=== PATIENT | female | born 2000 | race Caucasian/White ===

== ENCOUNTER 2020-06-17 19:46 | Inpatient (IN) | payer MEDICAID, OTHER ==
[~2020-06-17] VITALS: Ht 152.8 cm; Wt 79.8 kg
[2020-06-17] MEDS ORDERED: ONDANSETRON HCL 4MG/2ML INJ IV STA (20:52)
[2020-06-17] MEDS ORDERED: KETOROLAC 30MG/ML VIAL IV STA (20:52)
[2020-06-17] MEDS ORDERED: SODIUM CHLORIDE 0.9% 1,000 ML IV ONE (20:52)
[2020-06-17 21:03] LABS: CLARITY URINE CLEAR (CLEAR); COLOR URINE DARK YELLOW (YELLOW); KETONES URINE TRACE (NEGATIVE); LEUKOCYTE ESTERASE URINE 1+ (NEGATIVE); NITRITE URINE NEGATIVE (NEGATIVE); OCCULT BLOOD URINE TRACE (NEGATIVE); PROTEIN URINE 1+ (NEGATIVE); SPECIFIC GRAVITY URINE 1.031 (1.005-1.030)
[2020-06-17 21:31] LABS: BASOPHILS % 0.3 % (0.0-2.0); EOSINOPHILS % 0.4 % (0.0-5.0); HEMATOCRIT. 37.6 % (36.0-48.0); LYMPHOCYTES % 9.6 % (20.0-50.0); MEAN CORPUSCULAR HEMOGLOBIN 28.5 pg (28.0-32.0); MEAN CORPUSCULAR VOLUME 82.6 fL (81.0-99.0); MONOCYTES % 7.1 % (2.0-8.0); NEUTROPHILS % 82.6 % (40.0-76.0); PLATELET 310 x1000/uL (130-400); RED BLOOD CELL COUNT 4.55 mill/uL (4.2-5.4); RED CELL DISTRIBUTION WIDTH 13.4 % (11.6-14.6)
[2020-06-17 21:33] LABS: CHLORIDE 105 mEq/L (98-107)
[2020-06-17 21:38] LABS: PROTHROMBIN TIME 10.6 sec (9.6-11.0)
[2020-06-17] MEDS ORDERED: PIPERACILLIN/TAZ 3.375G PREMIX 50 ML IV ONE (23:00)
[2020-06-18 00:30] VITALS: BP 129/84
[2020-06-18] MEDS ORDERED: HYDROMORPHONE HCL/PF 2MG/ML CPJ IV PRN (01:30)
[2020-06-18] MEDS ORDERED: ACETAMINOPHEN 325MG TABLET PO PRN (01:30)
[2020-06-18] MEDS ORDERED: DIATR MEGLU/DIATRIZOATE SOLN 30ML PO SCH ×2 (01:30→06:00)
[2020-06-18] MEDS ORDERED: ZOLPIDEM TARTRATE 5MG TABLET PO PRN (01:30)
[2020-06-18] MEDS ORDERED: ONDANSETRON HCL 4MG/2ML INJ IV PRN (01:30)
[2020-06-18 04:00] VITALS: BP 129/84
[2020-06-18] MEDS: DEXT 5%/0.45% NACL KCL 20MEQ/L 1,000 ML IV SCH ×2 (04:59→14:11)
[2020-06-18] MEDS: PIPERACILLIN/TAZOBACTAM 3.375 G in DEXT 5% WATER 100 ML IV SCH ×2 (05:09→14:11)
[2020-06-18] MEDS ORDERED: DIATR MEGLU/DIATRIZOATE SOLN 30ML ONE (05:33)
[2020-06-18 07:07] LABS: BASOPHILS % 0.4 % (0.0-2.0); EOSINOPHILS % 1.7 % (0.0-5.0); HEMATOCRIT. 32.2 % (36.0-48.0); LYMPHOCYTES % 27.6 % (20.0-50.0); MEAN CORPUSCULAR HEMOGLOBIN 28.5 pg (28.0-32.0); MEAN CORPUSCULAR VOLUME 83.3 fL (81.0-99.0); MEAN PLATELET VOLUME 8.1 fl (7.4-10.4); MONOCYTES % 9.2 % (2.0-8.0); NEUTROPHILS % 61.1 % (40.0-76.0); PLATELET 267 x1000/uL (130-400); RED BLOOD CELL COUNT 3.87 mill/uL (4.2-5.4); RED CELL DISTRIBUTION WIDTH 13.2 % (11.6-14.6)
[2020-06-18 07:19] LABS: CHLORIDE 108 mEq/L (98-107)
[2020-06-18 07:35] LABS: HEPATITIS B SURFACE ANTIGEN NEGATIVE
[2020-06-18 08:00] VITALS: BP 117/70
[2020-06-18 08:04] LABS: HEPATITIS A AB IGM NEGATIVE (NEGATIVE)
[2020-06-18] MEDS ORDERED: ENOXAPARIN 40MG/0.4ML SYR SUBCUT SCH (09:00)
[2020-06-18 11:21] LABS: UCG SCREEN NEGATIVE
[2020-06-18 11:26] LABS: *AMPHETAMINES SCREEN URINE NEGATIVE (NEGATIVE); *BARBITURATES SCREEN URINE NEGATIVE (NEGATIVE); *BENZODIAZEPINES SCREEN URINE NEGATIVE (NEGATIVE); *COCAINE SCREEN URINE NEGATIVE (NEGATIVE); CANNABINOID URINE SCREEN NEGATIVE (NEGATIVE); PHENCYCLIDINE URINE SCREEN NEGATIVE (NEGATIVE)
[2020-06-18 11:28] LABS: METHADONE URINE SCREEN NEGATIVE (NEGATIVE); OPIATES URINE SCREEN NEGATIVE (NEGATIVE)
[2020-06-18 12:00] VITALS: BP 122/68
[2020-06-18 12:42] LABS: HCG SCREEN NEGATIVE
[2020-06-18] MEDS ORDERED: AMOX1TAB15 MT (14:33)
[2020-06-18 15:19] VITALS: BP 122/68
[2020-06-18] MEDS ORDERED: PIPERACILLIN/TAZOBACTAM 3.375 G in DEXT 5% WATER 100 ML IV SCH (20:00)
== END 2020-06-18 15:42 | disposition home or self-care (01) ==
LOC: ER 19:46 → 6EST 23:45 → EDBEDREQ 23:48 → EDBEDREQTM 23:48 → ENRESERV 23:52
PROVIDERS: ADMIT Ophthalmology; ATTEND Ophthalmology
DX: K80.20 Calculus of gallbladder without cholecystitis without obstruction (principal); M54.5 Low back pain; R11.14 Bilious vomiting; D64.9 Anemia, unspecified; R74.0 Nonspecific elevation of levels of transaminase and lactic acid dehydrogenase [LDH]; R73.9 Hyperglycemia, unspecified; E66.9 Obesity, unspecified; E86.0 Dehydration; N39.0 Urinary tract infection, site not specified; Z68.34 Body mass index [BMI] 34.0-34.9, adult
CPT/HCPCS: 36415; 74178; 76705; 80053; 80061; 80305; 81003; 81025; 83605; 84443; 84703; 85025; 86705; 86709; 86803; 86850; 86900; 87340; 93005; 99285; J1650; J1885; J2405; J2543; J7030; J7060; Q9963

== ENCOUNTER 2020-06-27 01:20 | Inpatient (IN) | payer MEDICAID ==
[~2020-06-27] VITALS: Ht 157.5 cm; Wt 79.8 kg
[~2020-06-27 01:20] MED LIST: AMOX1TAB15 MT
[2020-06-27] MEDS ORDERED: ONDANSETRON 4MG ODT PO STA (02:30)
[2020-06-27] MEDS ORDERED: KETOROLAC 60MG/2ML VIAL IM STA (02:30)
[2020-06-27 02:59] LABS: BASOPHILS % 0.3 % (0.0-2.0); EOSINOPHILS % 0.1 % (0.0-5.0); HEMATOCRIT. 38.4 % (36.0-48.0); LYMPHOCYTES % 8.7 % (20.0-50.0); MEAN CORPUSCULAR HEMOGLOBIN 28.4 pg (28.0-32.0); MEAN PLATELET VOLUME 8.2 fl (7.4-10.4); MONOCYTES % 5.3 % (2.0-8.0); NEUTROPHILS % 85.6 % (40.0-76.0); PLATELET 340 x1000/uL (130-400); RED BLOOD CELL COUNT 4.57 mill/uL (4.2-5.4); RED CELL DISTRIBUTION WIDTH 13.5 % (11.6-14.6)
[2020-06-27 03:04] LABS: CHLORIDE 107 mEq/L (98-107)
[2020-06-27 03:31] LABS: CLARITY URINE CLOUDY (CLEAR); COLOR URINE DARK YELLOW (YELLOW); KETONES URINE 2+ (NEGATIVE); LEUKOCYTE ESTERASE URINE 1+ (NEGATIVE); NITRITE URINE NEGATIVE (NEGATIVE); OCCULT BLOOD URINE 3+ (NEGATIVE); PROTEIN URINE 1+ (NEGATIVE)
[2020-06-27 03:48] LABS: *AMPHETAMINES SCREEN URINE NEGATIVE (NEGATIVE); *BARBITURATES SCREEN URINE NEGATIVE (NEGATIVE); *BENZODIAZEPINES SCREEN URINE NEGATIVE (NEGATIVE)
[2020-06-27 03:49] LABS: *COCAINE SCREEN URINE NEGATIVE (NEGATIVE); CANNABINOID URINE SCREEN NEGATIVE (NEGATIVE); METHADONE URINE SCREEN NEGATIVE (NEGATIVE); OPIATES URINE SCREEN NEGATIVE (NEGATIVE); PHENCYCLIDINE URINE SCREEN NEGATIVE (NEGATIVE)
[2020-06-27] MEDS ORDERED: ONDANSETRON HCL 4MG/2ML INJ IV SCH (04:15)
[2020-06-27] MEDS ORDERED: SODIUM CHLORIDE 0.9% 1000ML BAG (SEPSIS BOLUS) IV ONE (04:15)
[2020-06-27] MEDS: MORPHINE SULFATE 4 MG/ML CPJ (NOT FOR IM USE) IV SCH ×2 (05:12→06:04)
[2020-06-27] MEDS ORDERED: PIPERACILLIN/TAZ 3.375G PREMIX 50 ML IV SCH (08:45)
[2020-06-27] MEDS ORDERED: ONDANSETRON HCL 4MG/2ML INJ IV PRN (08:45)
[2020-06-27 09:05] VITALS: BP 142/84
[2020-06-27] MEDS: PIPERACILLIN/TAZOBACTAM 3.375 G in DEXT 5% WATER 100 ML IV SCH ×3 (09:23→21:30)
[2020-06-27] MEDS: FAMOTIDINE 20MG/2ML VIAL IV SCH ×2 (09:23→21:26)
[2020-06-27] MEDS: ENOXAPARIN 40MG/0.4ML SYR SUBCUT SCH (09:25)
[2020-06-27] MEDS: HYDROMORPHONE HCL/PF 2MG/ML CPJ IV PRN ×3 (09:25→21:25)
[2020-06-27] MEDS: DEXT 5%/0.45% NACL KCL 20MEQ/L 1,000 ML IV SCH ×2 (14:34→21:30)
[2020-06-27 16:47] LABS: HEMATOCRIT. 35.9 % (36.0-48.0); HEMOGLOBIN. 12.1 g/dL (12.0-16.0); MEAN CORPUSCULAR HEMOGLOBIN 28.6 pg (28.0-32.0); MEAN CORPUSCULAR VOLUME 85.3 fL (81.0-99.0); MEAN PLATELET VOLUME 8.4 fl (7.4-10.4); PLATELET 287 x1000/uL (130-400); RED BLOOD CELL COUNT 4.21 mill/uL (4.2-5.4); RED CELL DISTRIBUTION WIDTH 13.9 % (11.6-14.6)
[2020-06-27 16:52] LABS: CHLORIDE 110 mEq/L (98-107)
[2020-06-27 17:07] LABS: INR 1.1; PROTHROMBIN TIME 11.3 sec (9.6-11.0)
[2020-06-27 18:09] LABS: HCG SCREEN NEGATIVE
[2020-06-27 20:00] VITALS: BP 121/80
[2020-06-27 20:40] LABS: PLATELET ESTIMATE NORMAL
[2020-06-28] VITALS: BP 122/75
[2020-06-28 04:00] VITALS: BP 119/69
[2020-06-28] MEDS: PIPERACILLIN/TAZOBACTAM 3.375 G in DEXT 5% WATER 100 ML IV SCH ×4 (05:50→21:05)
[2020-06-28] MEDS: DEXT 5%/0.45% NACL KCL 20MEQ/L 1,000 ML IV SCH ×3 (05:51→21:05)
[2020-06-28 06:41] LABS: BASOPHILS % 0.1 % (0.0-2.0); EOSINOPHILS % 0.2 % (0.0-5.0); HEMATOCRIT. 32.7 % (36.0-48.0); HEMOGLOBIN. 11.2 g/dL (12.0-16.0); LYMPHOCYTES % 9.4 % (20.0-50.0); MEAN CORPUSCULAR VOLUME 84.6 fL (81.0-99.0); MEAN PLATELET VOLUME 8.4 fl (7.4-10.4); NEUTROPHILS % 81.3 % (40.0-76.0); PLATELET 222 x1000/uL (130-400); RED BLOOD CELL COUNT 3.87 mill/uL (4.2-5.4); RED CELL DISTRIBUTION WIDTH 13.4 % (11.6-14.6)
[2020-06-28 06:44] LABS: CHLORIDE 108 mEq/L (98-107)
[2020-06-28 06:54] LABS: AMYLASE 1086 IU/L (25-115)
[2020-06-28 08:00] VITALS: BP 126/70
[2020-06-28] MEDS: HYDROMORPHONE HCL/PF 2MG/ML CPJ IV PRN ×4 (08:12→21:55)
[2020-06-28] MEDS: FAMOTIDINE 20MG/2ML VIAL IV SCH ×2 (08:51→21:05)
[2020-06-28] MEDS: ENOXAPARIN 40MG/0.4ML SYR SUBCUT SCH (08:52)
[2020-06-28 12:00] VITALS: BP 114/66
[2020-06-28] MEDS ORDERED: POTASSIUM CHLORIDE INJ 40 MEQ in DEXT 5% WATER 250 ML IV SCH (14:00)
[2020-06-28] MEDS ORDERED: POTASSIUM CHLORIDE 20MEQ TABLET SR PO NR (14:15)
[2020-06-28 16:00] VITALS: BP 116/81
[2020-06-28 20:00] VITALS: BP 117/64
[2020-06-28 21:18] LABS: HEPATITIS B SURFACE ANTIGEN NEGATIVE
[2020-06-28 21:48] LABS: HEPATITIS A AB IGM NEGATIVE (NEGATIVE)
[2020-06-29] VITALS: BP 128/72
[2020-06-29 04:00] VITALS: BP 120/78
[2020-06-29] MEDS: PIPERACILLIN/TAZOBACTAM 3.375 G in DEXT 5% WATER 100 ML IV SCH ×4 (04:01→21:45)
[2020-06-29] MEDS: DEXT 5%/0.45% NACL KCL 20MEQ/L 1,000 ML IV SCH ×3 (04:01→21:45)
[2020-06-29] MEDS: HYDROMORPHONE HCL/PF 2MG/ML CPJ IV PRN ×3 (04:33→21:47)
[2020-06-29 06:42] LABS: BASOPHILS % 0.4 % (0.0-2.0); HEMATOCRIT. 30.6 % (36.0-48.0); HEMOGLOBIN. 10.4 g/dL (12.0-16.0); LYMPHOCYTES % 13.6 % (20.0-50.0); MEAN CORPUSCULAR HEMOGLOBIN 28.5 pg (28.0-32.0); MEAN CORPUSCULAR VOLUME 83.9 fL (81.0-99.0); MEAN PLATELET VOLUME 8.2 fl (7.4-10.4); MONOCYTES % 10.6 % (2.0-8.0); NEUTROPHILS % 74.4 % (40.0-76.0); PLATELET 200 x1000/uL (130-400); RED BLOOD CELL COUNT 3.64 mill/uL (4.2-5.4); RED CELL DISTRIBUTION WIDTH 13.4 % (11.6-14.6)
[2020-06-29 07:30] LABS: CHLORIDE 105 mEq/L (98-107)
[2020-06-29 08:00] VITALS: BP 127/72
[2020-06-29] MEDS: FAMOTIDINE 20MG/2ML VIAL IV SCH ×2 (09:13→21:46)
[2020-06-29] MEDS: ENOXAPARIN 40MG/0.4ML SYR SUBCUT SCH (09:23)
[2020-06-29 12:00] VITALS: BP 120/64
[2020-06-29 16:00] VITALS: BP 122/72
[2020-06-29 20:00] VITALS: BP 117/76
[2020-06-30] VITALS: BP 127/79
[2020-06-30] MEDS: PIPERACILLIN/TAZOBACTAM 3.375 G in DEXT 5% WATER 100 ML IV SCH ×3 (03:16→15:53)
[2020-06-30 04:00] VITALS: BP 117/76
[2020-06-30] MEDS: DEXT 5%/0.45% NACL KCL 20MEQ/L 1,000 ML IV SCH (06:07)
[2020-06-30 07:20] LABS: CHLORIDE 107 mEq/L (98-107)
[2020-06-30 07:37] LABS: BASOPHILS % 0.4 % (0.0-2.0); HEMATOCRIT. 29.7 % (36.0-48.0); HEMOGLOBIN. 10.1 g/dL (12.0-16.0); LYMPHOCYTES % 21.3 % (20.0-50.0); MEAN CORPUSCULAR HEMOGLOBIN 28.4 pg (28.0-32.0); MEAN CORPUSCULAR VOLUME 83.4 fL (81.0-99.0); MEAN PLATELET VOLUME 8.4 fl (7.4-10.4); MONOCYTES % 9.5 % (2.0-8.0); NEUTROPHILS % 65.8 % (40.0-76.0); PLATELET 204 x1000/uL (130-400); RED BLOOD CELL COUNT 3.56 mill/uL (4.2-5.4)
[2020-06-30 08:00] VITALS: BP 125/69
[2020-06-30] MEDS: ENOXAPARIN 40MG/0.4ML SYR SUBCUT SCH (09:00)
[2020-06-30] MEDS: FAMOTIDINE 20MG/2ML VIAL IV SCH (09:01)
[2020-06-30] MEDS ORDERED: BUPIVACAINE HCL 0.5% (5MG/ML) 50ML ONE (09:42)
[2020-06-30] MEDS ORDERED: SKIN ADHESIVE 0.7 GM EA TOP ONE (09:42)
[2020-06-30] MEDS ORDERED: PROPOFOL 200MG/20ML VIAL IV ONE (10:02)
[2020-06-30] MEDS ORDERED: FENTANYL CITRATE/PF 50MCG/ML 2ML VIAL ONE ×2 (10:02→10:28)
[2020-06-30] MEDS ORDERED: MIDAZOLAM HCL 2 MG/2 ML VIAL ONE (10:03)
[2020-06-30] MEDS ORDERED: ROCURONIUM BROMIDE 10MG/ML VIAL 5ML IV ONE (10:14)
[2020-06-30] MEDS ORDERED: LIDOCAINE HCL/PF 1% 10 MG/ML 5ML VIAL ONE (10:54)
[2020-06-30] MEDS ORDERED: KETOROLAC 30MG/ML VIAL ONE (10:54)
[2020-06-30] MEDS ORDERED: NEOSTIGMINE METHYLSULFATE 1MG/ML 10 ML VIAL ONE (11:01)
[2020-06-30] MEDS ORDERED: GLYCOPYRROLATE 0.2 MG/ML 2ML VIAL ONE (11:02)
[2020-06-30] MEDS ORDERED: HYDROMORPHONE HCL/PF 2MG/ML CPJ IV PRN (11:15)
[2020-06-30] MEDS ORDERED: HYDROMORPHONE HCL/PF 2MG/ML CPJ IV NR (11:15)
[2020-06-30] MEDS ORDERED: DEXT 5%/0.45% NACL KCL 20MEQ/L 1,000 ML IV SCH ×2 (11:29→12:00)
[2020-06-30] MEDS ORDERED: MORPHINE SULFATE 4 MG/ML CPJ (NOT FOR IM USE) IV PRN (11:30)
[2020-06-30] MEDS ORDERED: HYDROCODONE/ACETAMINOPHEN 5/325MG TABLET PO PRN ×4 (11:30)
[2020-06-30] MEDS ORDERED: MORPHINE SULFATE 2 MG/ML CPJ (NOT FOR IM USE) IV PRN ×2 (11:30)
[2020-06-30] MEDS ORDERED: ONDANSETRON HCL 4MG/2ML INJ IV PRN ×2 (11:30)
[2020-06-30] MEDS ORDERED: SODIUM CHLORIDE 0.9% INJ 3ML FLUSH IVF SCH ×2 (14:00)
[2020-06-30] MEDS: MORPHINE SULFATE 4 MG/ML CPJ (NOT FOR IM USE) IV PRN ×2 (14:01→17:04)
[2020-06-30 16:00] VITALS: BP 137/83
[2020-06-30 17:58] VITALS: BP 138/91
[2020-06-30 18:47] VITALS: BP 138/91
== END 2020-06-30 19:26 | disposition home or self-care (01) | DRG 263 ==
LOC: ER 02:34 → 6EST 04:56 → ENRESERV 07:54
PROVIDERS: ADMIT Ophthalmology; ATTEND Ophthalmology
PROC: 0FT44ZZ Resection of Gallbladder, Percutaneous Endoscopic Approach (ICD-10-PCS; principal; 2020-06-30)
DX: K80.20 Calculus of gallbladder without cholecystitis without obstruction (principal); K85.10 Biliary acute pancreatitis without necrosis or infection; E87.6 Hypokalemia; K76.0 Fatty (change of) liver, not elsewhere classified; R73.9 Hyperglycemia, unspecified; Z20.828 Contact with and (suspected) exposure to other viral communicable diseases; Z79.2 Long term (current) use of antibiotics
CPT/HCPCS: 36415; 73706; 74181; 76705; 80053; 80076; 80305; 81003; 82150; 82248; 83036; 84703; 85025; 86705; 86709; 86803; 86850; 86900; 87340; 87426; 88304; 93005; 99285; J1170; J1650; J1885; J2250; J2270; J2405; J2543; J2704; J2710; J3010; J3480; J3490; J7060; Q0162

== ENCOUNTER 2020-07-01 06:06 | Emergency (ER) | payer MEDICAID ==
[~2020-07-01] VITALS: Ht 157.5 cm; Wt 80.7 kg
[2020-07-01] MEDS ORDERED: ACETAMINOPHEN 325MG TABLET PO STA (06:49)
[2020-07-01] MEDS ORDERED: MORPHINE SULFATE 4 MG/ML CPJ (NOT FOR IM USE) IV STA (06:49)
[2020-07-01] MEDS ORDERED: PIPERACILLIN/TAZ 3.375G PREMIX 50 ML IV ONE (07:00)
[2020-07-01] MEDS ORDERED: VANCOMYCIN 1 G PREMIX 200 ML IV ONE (07:00)
[2020-07-01] MEDS ORDERED: SODIUM CHLORIDE 0.9% 1000ML BAG (SEPSIS BOLUS) IV ONE (07:00)
[2020-07-01 07:07] LABS: BASOPHILS % 0.2 % (0.0-2.0); EOSINOPHILS % 0.3 % (0.0-5.0); HEMATOCRIT. 32.3 % (36.0-48.0); HEMOGLOBIN. 11.2 g/dL (12.0-16.0); LYMPHOCYTES % 10.9 % (20.0-50.0); MEAN CORPUSCULAR HEMOGLOBIN 28.6 pg (28.0-32.0); MEAN CORPUSCULAR VOLUME 82.8 fL (81.0-99.0); MEAN PLATELET VOLUME 8.1 fl (7.4-10.4); MONOCYTES % 11.6 % (2.0-8.0); PLATELET 288 x1000/uL (130-400)
[2020-07-01 07:13] LABS: CHLORIDE 101 mEq/L (98-107)
[2020-07-01 07:15] LABS: INR 1.1; PROTHROMBIN TIME 11.4 sec (9.6-11.0)
[2020-07-01 08:58] VITALS: BP 128/78
[2020-07-01 09:05] LABS: HCG SCREEN NEGATIVE
== END 2020-07-01 10:58 | disposition home or self-care (01) ==
LOC: ER 06:06
DX: G89.18 Other acute postprocedural pain (principal); R50.9 Fever, unspecified
CPT/HCPCS: 36415; 71045; 74176; 80053; 83605; 84145; 84484; 84703; 85025; 85610; 87040; 87086; 93005; 96365; 96368; 96375; 99285; J2270; J2543; J3370; J7030

== ENCOUNTER 2025-01-07 11:01 | Emergency (ER) | payer MEDICAID, OTHER ==
[~2025-01-07] VITALS: Ht 157.5 cm; Wt 94.0 kg
[2025-01-07 11:14] VITALS: O2SAT 100
[2025-01-07 12:10] LABS: CHLORIDE 106 mEq/L (98-107); POTASSIUM 3.7 mEq/L (3.5-5.1); SODIUM 139 mEq/L (136-145)
[2025-01-07 12:11] LABS: CARBON DIOXIDE 23 mEq/L (21-32)
[2025-01-07 12:12] LABS: CALCIUM 9.7 mg/dL (8.7-10.4)
[2025-01-07 12:16] LABS: CREATININE 0.5 mg/dL (0.6-1.0); GLUCOSE 101 mg/dL (70-105); UREA NITROGEN BLOOD 6 mg/dL (9-23)
[2025-01-07 12:17] LABS: B-HCG QUANTITATIVE 721 mIU/mL (<6)
[2025-01-07 12:21] LABS: BASOPHILS % 0.4 % (0.0-2.0); EOSINOPHILS % 2.3 % (0.0-5.0); HEMATOCRIT. 36.3 % (36.0-48.0); HEMOGLOBIN. 12.1 g/dL (12.0-16.0); LYMPHOCYTES % 22.5 % (20.0-50.0); MEAN CORPUSCULAR HEMOGLOBIN 29.6 pg (28.0-32.0); MEAN CORPUSCULAR HGB CONC 33.4 g/dL (31.0-37.0); MEAN CORPUSCULAR VOLUME 88.7 fL (81.0-99.0); MEAN PLATELET VOLUME 7.8 fl (7.4-10.4); MONOCYTES % 6.5 % (2.0-8.0); NEUTROPHILS % 68.3 % (40.0-76.0); PLATELET 348 x1000/uL (130-400); RED BLOOD CELL COUNT 4.09 mill/uL (4.2-5.4); RED CELL DISTRIBUTION WIDTH 12.6 % (11.6-14.6); WHITE BLOOD COUNT 9.5 x1000/uL (4.5-11.0)
[2025-01-07 13:32] LABS: ALANINE AMINOTRANSFERASE 24 IU/L (10-49); ASPARTATE AMINOTRANSFERASE 14 IU/L (<34)
[2025-01-07 13:33] LABS: BILIRUBIN DIRECT < 0.1 mg/dL (<=3.0); BILIRUBIN TOTAL 0.2 mg/dL (0.1-1.0); PROTEIN TOTAL 7.1 g/dL (6.0-8.3)
[2025-01-07 13:49] LABS: CLARITY URINE TURBID (CLEAR); COLOR URINE RED (YELLOW); GLUCOSE URINE NEGATIVE (NEGATIVE); KETONES URINE NEGATIVE (NEGATIVE); LEUKOCYTE ESTERASE URINE 2+ (NEGATIVE); NITRITE URINE NEGATIVE (NEGATIVE); OCCULT BLOOD URINE 3+ (NEGATIVE); PH URINE 5.5 (4.5-8.0); PROTEIN URINE 2+ (NEGATIVE); SPECIFIC GRAVITY URINE 1.023 (1.005-1.030); UROBILINOGEN URINE 0.2 E.U./dL (0.2-1.0)
[2025-01-07 14:15] LABS: BACTERIA URINE 1+; RBC URINE TNTC /hpf (0-2); SQUAMOUS EPITHELIAL CELL URINE 1+ /lpf (RARE/1+); YEAST URINE NONE SEEN
[2025-01-07] MEDS ORDERED: CEPH500C2 MT (14:57)
[2025-01-07 15:18] VITALS: BP 183/96; PULSE 85; RESP 16; TEMP 36.9; O2SAT 100
== END 2025-01-07 15:19 | disposition home or self-care (01) ==
LOC: ER 11:01
DX: O20.0 Threatened abortion (principal); Z79.899 Other long term (current) drug therapy; Z3A.01 Less than 8 weeks gestation of pregnancy
CPT/HCPCS: 36415; 76801; 80048; 80076; 81003; 81025; 84702; 85025; 86850; 86900; 99284